=== PATIENT | male | born 1965 ===

== ENCOUNTER 2018-01-27 18:00 | Emergency (ER) | payer SELFPAY ==
[2018-01-27 18:05] VITALS: TEMP 97.9
--- NOTE | 2018-01-27 20:13 | ED PDOC ---
HPI: Psych/Substance Abuse Time Seen by Provider: 01/27/18 19:25 Chief Complaint (Nursing): Alcohol Ingestion Chief Complaint (Provider): Alcohol Ingestion ED Caveat: Intoxicated History Per: EMS History/Exam Limitations: intoxication Onset/Duration Of Symptoms: Hrs Current Symptoms Are (Timing): Still Present Modifying Factor(s): Alcohol Additional Complaint(s): Jermaine Alejandro is a 53 year old male who was brought to the ED by EMS for evaluation of alcohol intoxication. EMS reports that patient was intoxicated in public and as a result brought to the ED. No further history was obtainable from patient due to intoxicated state. PMD: none provided Past Medical History Reviewed: Historical Data, Nursing Documentation, Vital Signs, Unable To Obtain (intoxicated state ) Vital Signs: Last Vital Signs Temp 97.9 F 01/27/18 18:02 Pulse 105 H 01/27/18 18:02 Resp 16 01/27/18 18:02 BP 132/58 L 01/27/18 18:02 Pulse Ox 98 01/27/18 18:02 - Family History Family History: States: Unknown Family Hx - Allergies Allergies/Adverse Reactions: Allergies Allergy/AdvReac Type Severity Reaction Status Date / Time No Known Allergies Allergy Verified 01/27/18 18:02 Review of Systems ROS Statement: Except As Marked, All Systems Reviewed And Found Negative Review Of Systems: ROS cannot be obtained secondary to pt's inabilty to answer questions. (patient is intoxicated) Physical Exam - Reviewed Nursing Documentation Reviewed: Yes Vital Signs Reviewed: Yes - Physical Exam Appears: Positive for: Non-toxic, No Acute Distress Head Exam: Positive for: ATRAUMATIC, NORMAL INSPECTION, NORMOCEPHALIC Skin: Positive for: Normal Color, Warm, DRY Eye Exam: Positive for: EOMI, Normal appearance, PERRL Cardiovascular/Chest: Positive for: Regular Rate, Rhythm. Negative for: Murmur Respiratory: Positive for: Normal Breath Sounds. Negative for: Respiratory Distress Gastrointestinal/Abdominal: Positive for: Normal Exam, Soft. Negative for: Tenderness Extremity: Negative for: Deformity, Swelling Neurologic/Psych: Positive for: Alert, Gait (unsteady), Other (slurred speech). Negative for: Motor/Sensory Deficits - ECG O2 Sat by Pulse Oximetry: 98 (RA) Pulse Ox Interpretation: Normal Medical Decision Making Medical Decision Making: Time: 19:31 Impression: 53 year old male presenting with alcohol intoxication Plan: --Alcohol serum --Drug Screen --Accucheck 4:07 Patient is clinically sober for discharge. Diagnosis is alcohol intoxication. Return precautions provided. Scribe Attestation: Documented by Linda Valle, acting as a scribe for Hira Elmore MD. Provider Scribe Attestation: All medical record entries made by the Scribe were at my direction and personally dictated by me. I have reviewed the chart and agree that the record accurately reflects my personal performance of the history, physical exam, medical decision making, and the department course for this patient. I have also personally directed, reviewed, and agree with the discharge instructions and disposition. Scribe Attestation: Documented by Raine Sosa, acting as a scribe for Hira Elmore MD. Provider Scribe Attestation: All medical record entries made by the Scribe were at my direction and personally dictated by me. I have reviewed the chart and agree that the record accurately reflects my personal performance of the history, physical exam, medical decision making, and the department course for this patient. I have also personally directed, reviewed, and agree with the discharge instructions and disposition. Disposition - Clinical Impression Clinical Impression: Alcohol abuse with intoxication - Disposition Disposition: Routine/Home Disposition Time: 04:07 Condition: STABLE Instructions: Alcohol Abuse and Alcoholism (DC) Forms: [employer] (South African) Print Language: ALGERIAN
[2018-01-28 05:45] VITALS: BP 120/71; PULSE 81; RESP 17
[2018-01-28 22:14] VITALS: O2SAT 98
== END 2018-01-28 05:54 | disposition home or self-care (01) ==
LOC: H.ER 18:00
DX: F10.129 Alcohol abuse with intoxication, unspecified (principal); Y90.7 Blood alcohol level of 200-239 mg/100 ml
CPT/HCPCS: 82948; 99283; G0480